=== PATIENT | female | born 1945 | race Caucasian/White ===

== ENCOUNTER → 2021-08-01 | Outpatient (CLI) | payer OTHER ==
[~2021-08-01] MED LIST: ATORVASTATIN CA80 MG PO; DIGOXIN125 MCG PO; DULOXETINE HCL30 MG PO; DULOXETINE HCL60 MG PO; FUROSEMIDE 40 M40 M1 PO; HYDROCODON-ACE1 EAC7 PO; LANTUS SOL100 UNIT/1 SUBQ; LEVOTHYROXINE25 MCG PO; METFORMIN HCL500 M1 PO; TAMBOCOR 100 M100 M1 PO; VITAMIN B-121000 MC2 PO; WARFARIN SODIUM5 MG PO
== END ==
LOC: CAT 08:54
PROVIDERS: ATTEND Ophthalmology
DX: I67.82 Cerebral ischemia (principal); H49.02 Third [oculomotor] nerve palsy, left eye

== ENCOUNTER 2021-08-06 06:29 | Day surgery (SDC) | payer OTHER ==
[~2021-08-06] VITALS: Ht 170.2 cm; Wt 70.3 kg
--- NOTE | ~2021-08-06 | O ---
[facility] [place] [address] OPERATIVE REPORT Name: LINNETTE PALMER Room #: DEP [facility].#: [id number] Admission: 08/06/21 Attend Phys: Brett Maldonado MD Discharge: 08/06/21 Date of : 43 Report #: [id number] THIS REPORT FOR: cc: Nany Matson MD, Angela Michelle MD Chu,Brett De La Rosa MD ~ DATE OF SERVICE: 08/06/2021 PREOPERATIVE DIAGNOSIS: Left temporal headache, left third cranial nerve palsy. POSTOPERATIVE DIAGNOSIS: Left temporal headache, left third cranial nerve palsy. PROCEDURE PERFORMED: Left temporal artery biopsy. SURGEON: Brett Maldonado MD ANESTHESIA: IV sedation. Local 0.25% Marcaine. COMPLICATIONS: None. BLOOD LOSS: 5 mL DESCRIPTION OF PROCEDURE: Course of the temporal artery was identified with preoperative ultrasound, particularly in the more proximal aspect. The left temporal area was then prepped and draped in sterile fashion. A 0.25% Marcaine was used to anesthetize the skin. After incising through skin and subcutaneous tissue, cautery was used for hemostasis. Self-retaining retractor was placed. The artery after dissecting through several layers was found. The proximal part is noted to be tortuous. The distal part is fairly small size. The artery was found distally. The skin incision was enlarged to expose the artery. A small vessel loop was placed underneath the artery. Connective tissue was then cauterized away. Small branches were clipped and divided. A 5 cm segment was obtained. The distal end was clipped x2 proximally and it was then isolated and freed. I then go slightly more proximal to the tortuous part of the artery and this was sent to pathology. Irrigation was performed, hemostasis was obtained. Subcutaneous tissue was closed with 4-0 PDS. Skin was closed with 5-0 PDS. Dermabond was applied. The patient tolerated the procedure well. By: 37 Brett Maldonado MD /nt
[~2021-08-06 06:29] MED LIST changes: -HYDROCODON-ACE1 EAC7 PO
[2021-08-06 08:00] VITALS: BP 135/67
[2021-08-06] MEDS ORDERED: HYDROCODON-ACE1 EAC7 PO (10:50)
[2021-08-06 11:11] VITALS: BP 135/67
--- NOTE | 2021-08-08 12:07 | PATH ---
[facility] [address] [place] [address] PATHOLOGY RPT PROCEDURE Name: MAYRA YIP Room #: DEP [facility].R.#: [id number] Admission: 08/06/21 Date of : 43 Discharge: 08/06/21 Report #: [id number] Path Case #: [id number] [facility] Accession Number: [id number] . 01 Material submitted: . artery - LEFT TEMPORAL ARTERY. Modifiers: temporal, left . 01 Clinical history: . 3RD NERVE PALSEY . 02 Diagnosis: Artery, left temporal artery, biopsy: - Medium-sized muscular artery without significant pathologic abnormalities, see comment. . (SCA:mml; 08/07/2021) QLM 08/07/2021 1541 Local . 02 Comment: A negative biopsy does not rule out the possibility of giant cell (temporal) arteritis, as this may be a focal disorder. The clinical management should be dependent upon the clinical impression. . (SCA:mml; 08/07/2021) . 02 Electronically signed: . Daniel Smiley DO, Pathologist NPI- [id number] . 01 Gross description: . The specimen is received in formalin, labeled "Mayra Yip, left temporal artery". Received is a segment of light perdomo-pink, rubbery tubular tissue measuring 4.4 cm in length and 0.2 cm in diameter. The specimen is submitted entirely in cassette A1, and will be further sectioned during embedding.([facility]; 08/06/2021) [facility] 08/06/2021 1607 Local . 02 Pathologist provided ICD-10: Z03.89 . 02 CPT . 493962 Specimen Comment: A courtesy copy of this report has been sent to [phone] Specimen Comment: [id number] Specimen Comment: Report sent to / DR RIDDLE Specimen Comment: A duplicate report has [place] [address] PATHOLOGY RPT PROCEDURE Name: MAYRA YIP Room #: DEP [facility].#: [id number] Admission: 08/06/21 Date of : 43 Discharge: 08/06/21 Report #: [id number] Path Case #: [id number] updates. Performed at: 01 [facility] Guille Bauman [address], [place], [place] [id number] MD Scar Szymanski MD Phone: [phone] Performed at: [address] [id number] MD Juvenal Coyle MD Phone: [phone]
== END 2021-08-06 11:40 | disposition home or self-care (01) ==
LOC: OR → TBA 06:30 → OR 08:54
PROVIDERS: ATTEND Surgery
DX: G44.89 Other headache syndrome (principal); H49.02 Third [oculomotor] nerve palsy, left eye; I10 Essential (primary) hypertension; E11.9 Type 2 diabetes mellitus without complications; E03.9 Hypothyroidism, unspecified; E78.00 Pure hypercholesterolemia, unspecified; I48.91 Unspecified atrial fibrillation; Z98.890 Other specified postprocedural states; Z79.899 Other long term (current) drug therapy; Z20.822 Contact with and (suspected) exposure to COVID-19; Z95.0 Presence of cardiac pacemaker; Z79.01 Long term (current) use of anticoagulants; Z86.73 Personal history of transient ischemic attack (TIA), and cerebral infarction without residual deficits; Z79.4 Long term (current) use of insulin; Z98.41 Cataract extraction status, right eye; Z98.42 Cataract extraction status, left eye
CPT/HCPCS: 50010; 50101; 50386; 50398; 54118; 56525; 56526; 56805; 62110; 62900; 70005